=== PATIENT | male | born 1945 | race Caucasian/White ===

== ENCOUNTER 2019-05-01 09:56 | Day surgery (SDC) | payer MEDICARE ==
[~2019-05-01] VITALS: Ht 170.2 cm; Wt 66.1 kg
[2019-05-01] VITALS (18 sets, daily range): BP systolic 110–144; BP diastolic 57–89
[2019-05-01] MEDS ORDERED: morphine 4 MG/ML inj SYRINge IV PRN ×2 (10:25)
[2019-05-01] MEDS ORDERED: ondansetron/PF 4mg/2ml inj IV PRN (10:25)
[2019-05-01] MEDS ORDERED: labetalol 20mg/4ml (5mg/ml) syringe IV PRN (10:25)
[2019-05-01] MEDS ORDERED: hydrALAZINE 20mg/ml inj. IV PRN (10:25)
[2019-05-01] MEDS ORDERED: ringers solution, lacted 1,000 ML IV SCH ×2 (10:25→10:47)
[2019-05-01] MEDS ORDERED: fentaNYL/PF 50MCG/1 ML 2ML syringe IV PRN ×2 (10:25)
[2019-05-01] MEDS ORDERED: cefazolin/dext.iso 2gm/100 ML IV ONE (10:39)
[2019-05-01] MEDS ORDERED: famotidine 20mg tablet PO ONE (10:47)
[2019-05-01] MEDS ORDERED: ASPI-974 PO (10:50)
[2019-05-01] MEDS ORDERED: MULT-1085 PO (10:50)
[2019-05-01] MEDS ORDERED: ATOR40TA PO (10:50)
[2019-05-01] MEDS ORDERED: cefazolin/dext.iso 2gm/50ml 50 ML IV ONE (11:00)
[2019-05-01] MEDS ORDERED: LIDOcaine 1% (10mg/ml) 2ml vial ONE (11:23)
[2019-05-01 11:49] LABS: BASOPHILS % (AUTO) 0.7 % (0-1); EOSINOPHILS # (AUTO) 0.1 X10'3 (0-0.9); EOSINOPHILS % (AUTO) 1.3 % (0-6); LYMPHOCYTES # (AUTO) 1.2 X10'3 (1.1-4.8); LYMPHOCYTES % (AUTO) 22.9 % (21-51); MEAN CORPUSCULAR HEMOGLOBIN 28.3 PG (27.0-31.0); MEAN CORPUSCULAR HGB CONC 33.1 g/dL (33.0-36.5); MEAN CORPUSCULAR VOLUME 85.5 FL (78-98); MEAN PLATELET VOLUME 7.9 FL (7.4-10.4); MONOCYTES # (AUTO) 0.4 X10'3 (0-0.9); MONOCYTES % (AUTO) 7.8 % (2-12); NEUTROPHILS # (AUTO) 3.6 X10'3 (1.8-7.7); NEUTROPHILS % (AUTO) 67.3 % (42-75); PRE OP HEMATOCRIT 41.7 % (42.0-52.0); PRE OP HEMOGLOBIN 13.8 g/dL (14.0-17.9); PRE OP PLATELET COUNT 189 X10'3 (140-440); RED BLOOD COUNT 4.88 X10'6 (4.70-6.10); RED CELL DISTRIBUTION WIDTH 13.8 % (11.5-14.5)
[2019-05-01 12:14] LABS: ALBUMIN 3.7 G/DL (3.4-5.0); ALBUMIN/GLOBULIN RATIO 1.2 (1.1-1.5); ALKALINE PHOSPHATASE 62 IU/L (46-116); BLOOD UREA NITROGEN 12 MG/DL (7-18); BUN/CREATININE RATIO 13.8 (5.4-32.0); CALCIUM 8.7 MG/DL (8.5-10.1); CHLORIDE 109 MMOL/L (99-107); CREATININE 0.87 MG/DL (0.60-1.10); PRE OP ALT 31 U/L (30-65); PRE OP ANION GAP 6 (8-16); PRE OP AST 19 U/L (10-37); PRE OP BILIRUB, TOTAL 0.5 MG/DL (0.0-1.0); PRE OP GLUCOSE 89 MG/DL (70-104); PRE OP POTASSIUM 4.4 MMOL/L (3.4-5.1); PRE OP SODIUM 143 MMOL/L (135-145); TOTAL CARBON DIOXIDE 27.9 MMOL/L (24-32); TOTAL PROTEIN 6.8 G/DL (6.4-8.2); eGFR 86 ML/MIN
[2019-05-01] MEDS ORDERED: BUPIVAcaine/PF 2.5 mg/ml (0.25%) 30ml vial ONE (12:16)
[2019-05-01] MEDS ORDERED: LIDOcaine 1% 30ml preserv. free vial ONE (12:16)
[2019-05-01] MEDS ORDERED: sevoflurane 250ml liquid IH ONE (12:36)
[2019-05-01] MEDS ORDERED: labetalol 20mg/4ml (5mg/ml) syringe IV ONE (12:36)
[2019-05-01] MEDS ORDERED: hydrALAZINE 20mg/ml inj. IV ONE (12:36)
[2019-05-01] MEDS ORDERED: dexamethasone sod phosphate 10mg/ml inj ONE (12:36)
[2019-05-01] MEDS ORDERED: midazolam 2 mg/2 ml injection ONE (12:40)
[2019-05-01] MEDS ORDERED: fentaNYL/PF 50MCG/1 ML 2ML syringe ONE (12:40)
[2019-05-01] MEDS ORDERED: propofol inj 20 ML IV ONE (12:46)
[2019-05-01] MEDS ORDERED: LIDOcaine 1%/PF 5ML 10 MG/ML VIAL ONE (12:46)
[2019-05-01] MEDS ORDERED: rocuronium 10mg/ml inj IV ONE (12:48)
[2019-05-01] MEDS ORDERED: BUPIVAcaine/PF 7.5mg/ml (0.75%) 10ml vial ONE (12:48)
[2019-05-01] MEDS ORDERED: glycopyrrolate 0.2mg/ml inj ONE (12:49)
[2019-05-01] MEDS ORDERED: ondansetron/PF 4mg/2ml inj ONE (12:51)
--- NOTE | 2019-05-01 14:05 | NUR ---
Received from OR via [facility], accompanied by Anesthesiologist DR RATLIFF and report given by Anesthesiologist. PT DROWSY, DENIES PAIN, ABDOMEN W/3 LAP SITES W/BANDAIDS CDI. Addendum: 05/01/19 at 1550 by Alyce Hobson RN Amended: Links added.
[2019-05-01] MEDS ORDERED: HYDROcodone/acetaminophen 5mg/325mg tablet PO PRN ×2 (16:30)
[2019-05-01] MEDS ORDERED: LIDOcaine 2% 5ml jelly MM ONE (17:35)
[2019-05-01] MEDS ORDERED: LIDOcaine 2% 10ml TOPICAL JELLY (Urojet) MM ONE (17:50)
--- NOTE | 2019-05-01 18:25 | NUR ---
PT WAS UNABLE TO VOID, BLADDER SCANNED FOR 540 ML, CALLED DR HOOPER, ORDERS RECEIVED, 16 NAURUAN CHAN CATHETER PLACED W/ASEPTIC TECHNIQUE FOR A TOTAL OF 620 ML RETURN OF YELLOW URINE, BAG DRAINED, D/C INSTRUCTIONS GIVEN AND GONE OVER W/PT WHOM VERBALIZES UNDERSTANDING, PT D/CD TO HOME W/ VIA W/C TO PRIVATE VEHICLE. Addendum: 05/01/19 at 1848 by Alyce Hobson RN Amended: Links added.
== END 2019-05-01 18:25 | disposition home or self-care (01) ==
LOC: PAS 09:56
PROVIDERS: ATTEND Surgery
DX: K40.90 Unilateral inguinal hernia, without obstruction or gangrene, not specified as recurrent (principal); K42.0 Umbilical hernia with obstruction, without gangrene; I25.10 Atherosclerotic heart disease of native coronary artery without angina pectoris; E78.5 Hyperlipidemia, unspecified; Z95.5 Presence of coronary angioplasty implant and graft; Z79.82 Long term (current) use of aspirin; Z79.899 Other long term (current) drug therapy; Z98.890 Other specified postprocedural states; Z88.1 Allergy status to other antibiotic agents; Z80.52 Family history of malignant neoplasm of bladder; Z82.3 Family history of stroke; Z83.3 Family history of diabetes mellitus; Z82.49 Family history of ischemic heart disease and other diseases of the circulatory system
CPT/HCPCS: 36415; 49587; 49650; 80053; 85025; C1781; J2001; J2250; J2405; J2704; J3010; J3490; A4215; A4618; J0360; J1100; J7120

== ENCOUNTER 2025-06-13 10:03 | Day surgery (SDC) | payer MEDICARE ==
--- NOTE | 2025-06-06 14:36 | ELECTROCARDIOGRAPH REPORT ---
[facility] Test Date: 2025-06-06 Test Time: 14:34:24 Pat Name: BALA HA Department: [facility]-PRE-OP Patient ID: [facility]-[id number] Room: Gender: M [employer] Sales Engineer: tacos : 1945 Requested By: LIO HOOPER Order Number: [id number] Reading MD: Dr. ASAD Justin Measurements Intervals [place] Rate: 58 P: 76 NE: 149 QRS: 57 QRSD: 93 T: 39 QT: 392 QTc: 386 Interpretive Statements Sinus bradycardia Electronically Signed On 06-06-2025 16:51:[address] ASAD Justin Please click the below link to view image of tracing.
[2025-06-13] VITALS (22 sets, daily range): BP systolic 124–164; BP diastolic 65–86; PULSE 50–71; RESP 10–20; TEMP 98.1; O2SAT 93–100
[~2025-06-13] VITALS: Ht 170.2 cm; Wt 67.1 kg
[2025-06-13] MEDS: ceFAZolin 2gm/dext,iso 50mL 50 ML IV ONE (05:30)
[~2025-06-13 10:03] MED LIST: ASPI-974 PO; ATOR40TA PO; BUPIVAcaine/PF 2.5mg/ml (0.25%) 10ml vial ONE; LIDOcaine 1% 30ml preserv. free vial ONE; MULT-1085 PO; [UNRECOGNIZED DRUG - OTHER]
[2025-06-13] MEDS ORDERED: labetalol 20mg/4ml (5mg/ml) syringe IV PRN (10:15)
[2025-06-13] MEDS ORDERED: morphine 4 MG/ML inj SYRINge IV PRN (10:15)
[2025-06-13] MEDS ORDERED: ondansetron/PF 4mg/2ml inj IV PRN (10:15)
[2025-06-13] MEDS ORDERED: fentaNYL/PF 50MCG/1 ML 2ML syringe IV PRN ×2 (10:15)
[2025-06-13] MEDS ORDERED: hydrALAZINE 20mg/ml inj. IV PRN (10:15)
[2025-06-13] MEDS: ringers solution, lacted 1,000 ML IV SCH ×2 (10:40→14:24)
[2025-06-13] MEDS ORDERED: glycopyrrolate 0.2mg/ml inj ONE (11:30)
[2025-06-13] MEDS ORDERED: desflurane 240ml liquid inh. IH ONE (11:30)
[2025-06-13] MEDS ORDERED: dexamethasone sod phosphate 4mg/ml inj. ONE (11:40)
[2025-06-13] MEDS ORDERED: acetaminophen 1,000mg/100ml IV 100 ML IV ONE (11:40)
[2025-06-13] MEDS ORDERED: ondansetron/PF 4mg/2ml inj ONE (11:40)
[2025-06-13] MEDS ORDERED: propofol inj 20 ML IV ONE (11:40)
[2025-06-13] MEDS ORDERED: LIDOcaine 1%/PF 5ML 10 MG/ML VIAL ONE (11:40)
[2025-06-13] MEDS ORDERED: rocuronium 10mg/ml inj IV ONE (11:40)
[2025-06-13] MEDS ORDERED: fentaNYL/PF 50MCG/1 ML 2ML syringe ONE (11:46)
[2025-06-13] MEDS ORDERED: HYDROcodone/acetaminophen 5mg/325mg tablet PO PRN (13:15)
--- NOTE | 2025-06-13 13:19 | OPERATIVE REPORT ---
Operative Report Providers to CC: OMER HOOPER MD ~ Date of Procedure: Jun 13, 2025 Pre-Operative Diagnosis: Recurrent right inguinal hernia Post-Operative Diagnosis SAME as PRE-Op Procedure Performed Robotic assisted, laparoscopic recurrent right inguinal hernia repair with mesh Surgeon: Oemr Hooper MD FACS Clay Temperer None Anesthesiologist: Nehemias Duran Type of Anesthesia: General Findings: Recurrent, indirect right inguinal hernia Fairly large, lateral to the mesh with trap door recurrence Wound class I Complications None Prosthetics\Implants used: Large Dextile mesh-right Estimated Blood Loss: Minimal Specimen Removed: None Description of Procedure: Patient was brought to the operating room and identified by the nursing staff and the attending physician. Patient was placed supine and general anesthesia was induced. Patient's abdomen was prepped and draped in standard sterile fashion. Preoperative antibiotics were given. Supraumbilical incision was made to allow for standard [place] entry technique. Laparoscope was inserted after insufflation. Bilateral, 8.5 mm robotic trochars were placed under laparoscopic guidance following administration of local anesthetic. The da Jeny robotic arm was docked to the patient and instruments placed intra-abdominally under laparoscopic visualization. The left hemipelvis was examined and showed no evidence of left inguinal hernia. On the right, there was an obvious hernia recurrence. It appeared to be lateral to the mesh repair and it was an indirect type. Small bowel was herniated into the hernia sac and adherent to the hernia sac. Preperitoneal flap was created and carried down to the symphysis pubis. This was kept just medial to the previously placed preperitoneal mesh. A peritoneal rent was then created lateral to the visible mesh at about the level of the mid portion of the mesh, about the level of the superior margin of the internal ring. Preperitoneal dissection was continued until the mesh was encountered and the inferior half of the mesh was divided away from the superior half by cutting the mesh in half. This was continued until about the level of the inferior epigastric vessels. Mesh was adherent to the vessels and the mesh was then divided by cutting it inferiorly and the lower lateral portion of the previously placed hernia mesh. In doing so, I was able to develop the preperitoneal flap and connected with the flap medial overlying the bladder. Dissection was carried down to the inguinal canal where a very, very large hernia sac was mobilized out of the indirect space and away from the cord structures. Further retroperitoneal dissection continued until redemonstration of the critical view of the myopectineal orifice was achieved. A large Dextile mesh and suture was passed intra-abdominally. Mesh was passed into the preperitoneal space. Medial portion was tucked behind the symphysis pubis and laid out laterally so that there was some overlap with the previously placed mesh. Overlapping areas were sutured together with nonabsorbable suture and the mesh laid without wrinkles or folds, completely covering all potential inguinal defects. Peritoneal flap was then closed with a running absorbable suture. [place] were retrieved. Abdomen was deflated and secondary trochars removed. Fascia at the umbilical port site was closed with 0 Vicryl sutures. Skin incisions were closed with 4-0 Monocryl sutures in a subcuticular fashion. Sterile dressings were applied. Patient was awakened and taken to the postanesthesia care unit in stable condition. Counts repoted as correct: Yes OMER HOOPER MD Jun 13, 2025 13:19
--- NOTE | 2025-06-19 17:50 | HISTORY AND PHYSICAL ---
History & Physical Providers to CC ~ History of Present Illness Reason for Admit\Complaint: Recurrent right inguinal hernia History of Present Illness Interval history and physical exam This is being dictated in a delayed fashion Patient was seen and examined on June 13, 2025 Patient here today for elective repair of a recurrent right inguinal hernia He was seen in the office greater than 30 days ago but denies any change in his past medical history (please see previous history and physical exam for all pertinent details) He is scheduled for robotic assisted, laparoscopic right inguinal hernia repair with mesh-recurrent Allergies: Coded Allergies: No Known Allergies (Unverified , 05/01/19) Home Medications Home Medications Active Reported [[employer]] Multi Vitamin Daily (Multivitamin) 1 Each Tablet 1 Each PO DAILY Lipitor* (Atorvastatin Calcium) 40 Mg Tablet 1 Tab PO DAILY Aspirin 325 Mg Tablet 1 Tab PO DAILY ROS ROS Reviewed and negative Exam General: 80-year-old male in no acute distress Chest: Lungs clear to auscultation bilaterally Cardiovascular: Regular rate and rhythm without murmur Abdomen: Soft and nondistended Right inguinal hernia Right side marked with indelible ink Problems: (1) Recurrent right inguinal hernia Assessment & Plan: The risks, benefits, and alternatives to a robotic assisted, laparoscopic recurrent right inguinal hernia repair with mesh were discussed with the patient. Risks include, but are not limited to, bleeding, infection, injury to intra-abdominal structures, hernia recurrence and chronic postoperative pain. Patient verbalized understanding and wishes to proceed with surgery. We will do so today as scheduled LIO HOOPER MD Jun 19, 2025 17:50
== END 2025-06-13 16:40 | disposition home or self-care (01) ==
LOC: PAS 10:03
PROVIDERS: ATTEND Surgery
DX: K40.91 Unilateral inguinal hernia, without obstruction or gangrene, recurrent (principal); E78.00 Pure hypercholesterolemia, unspecified; Z79.82 Long term (current) use of aspirin; Z79.899 Other long term (current) drug therapy; Z95.5 Presence of coronary angioplasty implant and graft; Z98.890 Other specified postprocedural states; Z88.1 Allergy status to other antibiotic agents; Z80.59 Family history of malignant neoplasm of other urinary tract organ; Z82.49 Family history of ischemic heart disease and other diseases of the circulatory system; Z82.3 Family history of stroke
CPT/HCPCS: 49651; 82948; 93005; A4215; A4314; A4618; C1781; J0131; J1100; J2003; J2405; J2704; J2710; J3010; J3490; J7030; J7120; Z7506; Z7508; Z7512; Z7610